=== PATIENT | male | born 1970 | race Asian ===

== ENCOUNTER → 2017-01-13 | Outpatient (CLI) | payer BC ==
--- NOTE | 2017-01-13 08:08 | DIAGNOSTIC IMAGING REPORT ---
ULTRASOUND SOFT TISSUES RIGHT NECK CLINICAL HISTORY: Right neck lump. COMPARISON STUDY: No priors. FINDINGS: Real-time, grayscale, and color flow sonography of the soft tissues of the right neck is performed at the indicated site of interest. The right parotid gland is normal in size and homogeneous in echotexture. A tiny benign-appearing lymph node is incidentally noted in this region and measures 7 mm in short axis. No concerning mass or fluid collection is seen. IMPRESSION: No significant abnormality. Dictated: 01/13/2017 8:06 AM Transcribed: 01/13/2017 8:07 AM Issa Electronically signed by: Kenny Tenorio M.D. 01/13/2017 8:11 AM Dictated Date/Time: 01/13/2017 8:06 AM
== END | disposition home or self-care (01) ==
LOC: C.ULTR 07:41
PROVIDERS: ATTEND Family Medicine
DX: R22.1 Localized swelling, mass and lump, neck (principal)

== ENCOUNTER 2017-07-14 06:17 | Emergency (ER) | payer BC, OTHER ==
[~2017-07-14] VITALS: Ht 160 cm; Wt 61.1 kg
[2017-07-14 06:20] VITALS: TEMP 36.8; Ht 160 cm; Wt 61.1 kg
[2017-07-14 06:36] VITALS: O2SAT 94
--- NOTE | 2017-07-14 06:56 | DIAGNOSTIC IMAGING REPORT ---
CHEST ONE VIEW PORTABLE CLINICAL HISTORY: 46 years-old Male presenting with Evaluate Fever/Sepsis. TECHNIQUE: Portable upright AP view of the chest was obtained. COMPARISON: . FINDINGS: Cardiomediastinal silhouette normal. Lungs and pleural spaces clear. Osseous structures normal. Upper abdomen normal. IMPRESSION: 1. No acute cardiopulmonary disease. Electronically signed by: Sreedhar Bailon M.D. 07/14/2017 6:55 AM Dictated Date/Time: 07/14/2017 6:54 AM
[2017-07-14 07:07] LABS: BASO % 0.8 %; BASO ABS # 0.04 K/uL (0-0.2); EOS % 1.6 %; EOS ABS # 0.08 K/uL (0-0.5); HEMATOCRIT 43.9 % (42-52); HEMOGLOBIN 15.2 g/dL (14.0-18.0); IG# 0.01 K/uL (0.00-0.02); LYMPH % 32.3 %; LYMPH ABS # 1.62 K/uL (1.2-3.4); MEAN CELL VOLUME 87.6 fL (80-100); MEAN CORPUSCULAR HEMOGLOBIN 30.3 pg (25-34); MEAN CORPUSCULAR HGB CONC 34.6 g/dl (32-36); MEAN PLATELET VOLUME 9.9 fL (7.4-10.4); MONO % 10.6 %; MONO ABS # 0.53 K/uL (0.11-0.59); NEUT % 54.5 %; NEUT ABS # 2.74 K/uL (1.4-6.5); PLATELET COUNT 216 K/uL (130-400); RED CELL DISTRIBUTION WIDTH CV 12.2 % (11.5-14.5); WHITE BLOOD COUNT 5.02 K/uL (4.8-10.8)
[2017-07-14 07:20] LABS: PTT PATIENT 25.5 SECONDS (21.0-31.0)
[2017-07-14 07:30] LABS: ALBUMIN 4.3 gm/dl (3.4-5.0); AST/SGOT 19 U/L (15-37); BLOOD UREA NITROGEN 14 mg/dl (7-18); CALCIUM 9.4 mg/dl (8.5-10.1); CARBON DIOXIDE 26 mmol/L (21-32); CREATININE 0.81 mg/dl (0.60-1.40); GLUCOSE 100 mg/dl (70-99); LIPASE 212 U/L (73-393); POTASSIUM 3.4 mmol/L (3.5-5.1); SODIUM 138 mmol/L (136-145)
[2017-07-14 07:38] LABS: ALKALINE PHOSPHATASE 74 U/L (45-117); ALT/SGPT 29 U/L (12-78); CKMB 0.6 ng/ml (0.5-3.6); TOTAL PROTEIN 7.9 gm/dl (6.4-8.2)
[2017-07-14] MEDS ORDERED: MULT-506 PO (08:13)
[2017-07-14] MEDS ORDERED: LACT1CAP6 PO (08:13)
[2017-07-14] MEDS ORDERED: LYSI1TAB11 PO (08:13)
--- NOTE | 2017-07-14 08:14 | EMERGENCY ROOM VISIT NOTE ---
History Report prepared by Whitney: Jorden Vicente Under the Supervision of: Dr. Robert Velazquez D.O. First contact with patient: 06:39 Chief Complaint: TACHYCARDIA Stated Complaint: HIGH HEART RATE,SHORTNESS OF BREATH,SOME BODY PAIN Nursing Triage Summary: c/o high hr for a few days and mild flu like symptoms no meds taken [employer] History of Present Illness The patient is a 46 year old male who presents to the Emergency Room with complaints of a rapid heart rate and shortness of breath that he has been experiencing for the past couple of days. The patient states that when he woke up this morning at 0430 he could feel his heart beating rapidly. He counted his pulse and believes his heart was in the 110s. He notes that there was associated shortness of breath and lightheadedness when the tachycardic rate onset. He denies any recent travels or surgeries. His daughter was dealing with flu-like symptoms recently but he has not had any fevers himself. The patient did make note of one spot on his abdomen that seemed to be discolored when compared to usual. Source of History: patient Onset: Past couple of days. Position: chest (cardiac) Quality: other (Tachycardia) Associated Symptoms: + SOB Review of Systems See HPI for pertinent positives & negatives. A total of 10 systems reviewed and were otherwise negative. Past Medical & Surgical Medical Problems: (1) Internal hemorrhoid Family History No pertinent family histories discussed. Social History Smoking Status: Never Smoker Marital Status: Housing Status: lives with family Occupation Status: employed Current/Historical Medications Scheduled Lactobacillus (Probiotic), 1 CAP PO DAILY Lysine (l-Lysine), 600 MG PO DAILY Multivitamin (Multivitamin), 1 TAB PO DAILY Allergies Coded Allergies: Penicillins (Unverified Allergy, Unknown, 07/14/17) Gluten (Unverified Adverse Reaction, Mild, GI SYMPTOMS, 07/14/17) Physical Exam Vital Signs Date Time Temp Pulse Resp B/P (MAP) Pulse Ox O2 Delivery O2 Flow Rate FiO2 07/14/17 07:36 72 16 119/85 96 Room Air 07/14/17 06:36 94 Room Air 07/14/17 06:36 94 Room Air 07/14/17 06:36 84 20 141/88 94 Room Air 07/14/17 06:31 90 07/14/17 06:20 36.8 91 18 145/105 96 Room Air Physical Exam CONSTITUTIONAL/VITAL SIGNS: Reviewed / noted above. GENERAL: Non-toxic in appearance. INTEGUMENTARY: Warm, dry, and [place]. HEAD: Normocephalic. EYES: without scleral icterus or trauma. ENT/OROPHARYNX: clear and moist. LYMPHADENOPATHY/NECK: Is supple without lymphadenopathy or meningismus. RESPIRATORY: Lungs clear and equal. CARDIOVASCULAR: Regular rate and rhythm. GI/ABDOMEN: Soft and nontender. No organomegaly or pulsatile mass. No rebound or guarding. Normal bowel sounds. EXTREMITIES: Warm and well perfused. BACK: No CVA tenderness. NEUROLOGICAL: Intact without focal deficits. PSYCHIATRIC: normal affect. MUSCULOSKELETAL: Normally developed with good muscle tone. Medical Decision & Procedures ER Provider Diagnostic Interpretation: Radiology results as stated below per my review and radiologist interpretation: CHEST ONE VIEW PORTABLE CLINICAL HISTORY: 46 years-old Male presenting with Evaluate Fever/Sepsis. TECHNIQUE: Portable upright AP view of the chest was obtained. COMPARISON: . FINDINGS: Cardiomediastinal silhouette normal. Lungs and pleural spaces clear. Osseous structures normal. Upper abdomen normal. IMPRESSION: 1. No acute cardiopulmonary disease. Electronically signed by: Sreedhar Bailon M.D. 07/14/2017 6:55 AM Dictated Date/Time: 07/14/2017 6:54 AM Laboratory Results 07/14/17 06:35 Red Blood Count 5.01, Mean Corpuscular Volume 87.6, Mean Corpuscular Hemoglobin 30.3, Mean Corpuscular Hemoglobin Concent 34.6, Mean Platelet Volume 9.9, Neutrophils (%) (Auto) 54.5, Lymphocytes (%) (Auto) 32.3, Monocytes (%) (Auto) 10.6, Eosinophils (%) (Auto) 1.6, Basophils (%) (Auto) 0.8, Neutrophils # (Auto ) 2.74, Lymphocytes # (Auto) 1.62, Monocytes # (Auto) 0.53, Eosinophils # (Auto ) 0.08, Basophils # (Auto) 0.04 07/14/17 06:35 Test 07/14/17 06:35 White Blood Count 5.02 K/uL (4.8-10.8) Red Blood Count 5.01 M/uL (4.7-6.1) Hemoglobin 15.2 g/dL (14.0-18.0) Hematocrit 43.9 % (42-52) Mean Corpuscular Volume 87.6 fL (80-100) Mean Corpuscular Hemoglobin 30.3 pg (25-34) Mean Corpuscular Hemoglobin Concent 34.6 g/dl (32-36) Platelet Count 216 K/uL (130-400) Mean Platelet Volume 9.9 fL (7.4-10.4) Neutrophils (%) (Auto) 54.5 % Lymphocytes (%) (Auto) 32.3 % Monocytes (%) (Auto) 10.6 % Eosinophils (%) (Auto) 1.6 % Basophils (%) (Auto) 0.8 % Neutrophils # (Auto) 2.74 K/uL (1.4-6.5) Lymphocytes # (Auto) 1.62 K/uL (1.2-3.4) Monocytes # (Auto) 0.53 K/uL (0.11-0.59) Eosinophils # (Auto) 0.08 K/uL (0-0.5) Basophils # (Auto) 0.04 K/uL (0-0.2) RDW Standard Deviation 39.0 fL (36.4-46.3) RDW Coefficient of Variation 12.2 % (11.5-14.5) Immature Granulocyte % (Auto) 0.2 % Immature Granulocyte # (Auto) 0.01 K/uL (0.00-0.02) Prothrombin Time 10.3 SECONDS (9.0-12.0) Prothromb Time International Ratio 1.0 (0.9-1.1) Activated Partial Thromboplast Time 25.5 SECONDS (21.0-31.0) Partial Thromboplastin Ratio 1.0 Anion Gap 11.0 mmol/L (3-11) Est Creatinine Clear Calc Drug Dose 92.7 ml/min Estimated GFR () 124.4 Estimated GFR (Non- 107.3 BUN/Creatinine Ratio 17.6 (10-20) Calcium Level 9.4 mg/dl (8.5-10.1) Total Bilirubin 0.4 mg/dl (0.2-1) Direct Bilirubin < 0.1 mg/dl (0-0.2) Aspartate Amino Transf (AST/SGOT) 19 U/L (15-37) Alanine Aminotransferase (ALT/SGPT) 29 U/L (12-78) Alkaline Phosphatase 74 U/L (45-117) Total Creatine Kinase 151 U/L (39-308) Creatine Kinase MB 0.6 ng/ml (0.5-3.6) Creatine Kinase MB Ratio 0.4 (0-3.0) Troponin I < 0.015 ng/ml (0-0.045) Total Protein 7.9 gm/dl (6.4-8.2) Albumin 4.3 gm/dl (3.4-5.0) Lipase 212 U/L (73-393) Thyroid Stimulating Hormone (TSH) 2.890 uIu/ml (0.300-4.500) Laboratory results as stated above per my review. ECG Indication: SOB/dyspnea, tachycardia Rate (beats per minute): 89 Rhythm: normal sinus Findings: other (Normal [place], Normal Intervals, ST ELEVATIONS ) Change: Patient's electrocardiogram interpreted by me. ED Course 0646: Previous medical records were reviewed. The patient was evaluated in room B7. A complete history and physical examination was performed. 0816: On reevaluation, the patient is resting in bed. I discussed the results and findings with the patient. He verbalized agreement of the treatment plan. The patient was discharged home. Medical Decision the differential that was considered includes acute myocardial infarction, acute coronary syndrome, myocarditis, pericarditis, pericardial effusions / tamponade, esophageal perforation, thoracic aortic dissection, pulmonary embolism, pneumonia, pneumothorax, pancreatitis, shingles, acute cholecystitis, perforated abdominal viscus. This is a 46-year-old male who presents to the ED with a chief complaint of a sensation of his heart rate being elevated. He states that his symptoms started 430 this morning. He has had similar symptoms over the past week. He states that his heart rate was about 110. He felt little short of breath. And a little lightheadedness as well. He also reported a few aches and pains on his ankles and under his ribs in the upper abdomen. The patient is in no distress. He is conversing normally. He denies recent illness, cough or fever. His initial blood pressure was 141/88. His physical exam was normal. He is in no distress. His breathing is comfortable and his heart rate was normal. An EKG shows a normal sinus rhythm at a rate of 89 without ectopy or acute injury. CBC is normal, complete metabolic panel was unremarkable, troponin is negative, TSH was normal and a chest x-ray did not show acute disease. The patient was told the results of the test. He does not appear to be having any significant symptoms and does not appear to be in any distress at this time. He is felt to be stable for discharge and outpatient follow-up. Medication Reconcilliation Current Medication List: was personally reviewed by me Blood Pressure Screening Patient's blood pressure: Normal blood pressure Impression Primary Impression: Palpitations Scribe Attestation The scribe's documentation has been prepared under my direction and personally reviewed by me in its entirety. I confirm that the note above accurately reflects all work, treatment, procedures, and medical decision making performed by me. Departure Information Dispostion Home / Self-Care Referrals Daphnie Oliveira M.D. (PCP) Patient Instructions ED Palpitations, My [facility] Additional Instructions Follow-up with your doctor for further care and evaluation in 1-2 days. Return to the emergency department for worsening or new symptoms or any concerns. You have been examined and treated today on an emergency basis only. This is not a substitute for, or an effort to provide, complete comprehensive medical care. It is impossible to recognize and treat all injuries or illnesses in a single emergency department visit. It is therefore important that you follow up closely with your doctor. Call as soon as possible for an appointment.
[2017-07-14 09:54] VITALS: BP 115/75; PULSE 83; O2SAT 96
== END 2017-07-14 09:55 | disposition home or self-care (01) ==
LOC: C.EDB 06:18
DX: R00.2 Palpitations (principal); R06.02 Shortness of breath; R42 Dizziness and giddiness; Z79.899 Other long term (current) drug therapy; Z87.19 Personal history of other diseases of the digestive system; Z88.0 Allergy status to penicillin

== ENCOUNTER 2020-12-22 09:33 | Observation (INO) ==
--- NOTE | 2020-12-19 12:48 | Anesthesiology Consultation ---
Date of Service December 19, 2020 Assessment & Plan (1) Encounter for pre-operative examination: - COVID screening: Per assessment on 12/19: Travel screen negative, no known COVID-19 positive contacts or current COVID-19 related symptoms. Patient vaccinated. Surgeon arranging preop COVID testing. Awaiting results. - Hx bradycardia: Most recent available EKG from 11/2018 noting NSR at 79bpm. S/P unremarkable holter, echo, stress test . Will update AM DOS. Chart Review Chart Review: Acceptable Risk for Surgery (pending preop EKG AM DOS) and Patient NOT seen in Pre Admission Testing History Surgery Operation Date: 12/22/20 09:50 Proposed Procedures p Septoplasty - Brandi You MD s Somnoplasty of Turbinates and Tongue, - Brandi You MD s Tonsillectomy, Uvulopalataoplasty - Brandi You MD Height/Weight Height: 5 ft 2 in Weight: 62.142 kg Allergies Allergy/AdvReac Type Severity Reaction Status Date / Time pollen extracts Allergy Mild Sneezing, Verified 12/19/20 12:39 watery eyes Penicillins Allergy Unknown Unknown Verified 12/19/20 10:13 gluten AdvReac Mild GI symptoms Verified 12/19/20 12:39 Medications Home Medications Medication Instructions Recorded Confirmed Last Taken multivitamin (Daily Multi-Vitamin) 1 tab PO Q OTHER DAY 02/12/19 12/19/20 Unknown fluticasone propionate 50 2 sprays INTNAS DAILY PRN 12/19/20 12/19/20 Unknown mcg/actuation nasal spray,suspension (Flonase Allergy Relief) lysine 500 mg tablet (L-Lysine) 500 mg PO 2XWK 12/19/20 12/19/20 Unknown Past Medical History Medical History Acquired deviated nasal septum Bradycardia "Borderline" bradycardia s/p PSH cardiac workup- discharged from cardio (unremarkable holter 2017 and echo/stress test 2018) Celiac disease Per blood testing (follows gluten free diet) Gastro-esophageal reflux History of seasonal allergies Internal hemorrhoid Obstructive sleep apnea CPAP Past Family History Family History Mother Hearing loss Father Hypertension Cancer Heart disease Other Coronary heart disease No family history of adverse response to anesthesia No family history of bleeding disorder Past Surgical History Surgical History History of colonoscopy History of drainage of abscess Right side of neck History of esophagogastroduodenoscopy (EGD) History of tooth extraction Social History Smoking Status: Never smoker Do You Dip or Chew Tobacco: No Hx Alcohol Use: Yes alcohol intake frequency: holidays/special occasions only Hx Substance Use: No substance use type: does not use Lab Results Anesthesia Preop Results Results Anesthesia Widget: WBC 3.64 K/uL (4.8-10.8) L 12/04/20 Hgb 15.4 g/dL (14.0-18.0) 12/04/20 Hct 45.4 % (42-52) 12/04/20 Plt 218 K/uL (130-400) 12/04/20 Na 139 mmol/L (136-145) 12/04/20 K 3.8 mmol/L (3.5-5.1) 12/04/20 Cl 106 mmol/L (98-107) 12/04/20 CO2 32 mmol/L (21-32) 12/04/20 PT 10.1 Seconds (9.0-12.0) 12/04/20 PTT 24.9 Seconds (21.0-31.0) 12/04/20 INR 1.0 (0.9-1.1) 12/04/20 Testing Electrocardiogram Date: 12/29/18 Normal sinus rhythm at 79 bpm. Nonspecific IVCD. Echocardiogram Date: 03/04/19 LVEF 65%. No regional motion abnormalities. No concentric LVH. No significant valvular disease. Stress Test Date: 03/15/19 Type: exercise Negative exercise stress echo/ECG for ischemia at 110% MPHR. Average exercise tolerance for age and gender. 10.1 METS.
--- NOTE | 2020-12-20 12:00 | History & Physical Report ---
Date of Service December 20, 2020 Assessment & Plan (1) Obstructive sleep apnea: Plan: For septoplasty, radiofrequency volume reduction of turbinates and of the tongue base, tonsillectomy and uvulopalatal plasty (2) Acquired deviated nasal septum: History of Present Illness Chief Complaint: Sleep apnea Primary Care Provider: Daphnie Oliveira This 50-year-old gentleman presents with long history of obstructive sleep apnea with RDI of 17 and lowest oxygen saturation of 77%. He tried CPAP but became so congested where he could only wear the CPAP 3 to 4 hours. He also tried oral appliance which initially successfully treated the sleep apnea however his teeth began to move and developed facial swelling. He desires definitive treatment. Allergies Allergy/AdvReac Type Severity Reaction Status Date / Time pollen extracts Allergy Mild Sneezing, Verified 12/19/20 12:39 watery eyes Penicillins Allergy Unknown Unknown Verified 12/19/20 10:13 gluten AdvReac Mild GI symptoms Verified 12/19/20 12:39 Home Medications Medication Instructions Recorded Confirmed Type multivitamin (Daily Multi-Vitamin) 1 tab PO Q OTHER DAY 02/12/19 12/19/20 History fluticasone propionate 50 2 sprays INTNAS DAILY PRN 12/19/20 12/19/20 History mcg/actuation nasal spray,suspension (Flonase Allergy Relief) lysine 500 mg tablet (L-Lysine) 500 mg PO 2XWK 12/19/20 12/19/20 History Past Med/Surg History Medical History Acquired deviated nasal septum Bradycardia "Borderline" bradycardia s/p PSH cardiac workup- discharged from cardio (unremarkable holter 2017 and echo/stress test 2018) Celiac disease Per blood testing (follows gluten free diet) Gastro-esophageal reflux History of seasonal allergies Internal hemorrhoid Obstructive sleep apnea CPAP Surgical History History of colonoscopy History of drainage of abscess Right side of neck History of esophagogastroduodenoscopy (EGD) History of tooth extraction Family History Mother Hearing loss Father Hypertension Cancer Heart disease Other Coronary heart disease No family history of adverse response to anesthesia No family history of bleeding disorder Social History (Updated 12/04/20 @ 09:00 by Glo Marie MA) Smoking Status: Never smoker Second Hand Exposure: No; Hx Alcohol Use: Yes Alcohol Intake Frequency Comment: "Occasional" Hx Substance Use: No Preferred Language: Yakut Communication Ability: Effective Accounting Recruiter Required: No Beliefs That Will Affect Care: None marital status: Current Living Situation: Spouse Current Living Situation Comment: Lives with and 2 kids current occupational status: employed Feels Safe at Home: Yes Assistive Devices: CPAP Physical Exam Constitutional: WD/WN, vitals as above Eyes: PERRL, conjunctivae normal, anicteric sclerae ENMT: external ear and nose normal, oropharynx normal Nose: + turbinate abnormality (Swollen turbinates) and + septum abnormality (Deviated septum) Mouth: + oropharynx abnormality (Tonsils symmetric, 3+, long uvula) and + tongue abnormality (Tongue base collapse on supine Perez) Neck: trachea midline, no thyromegaly Respiratory: normal respiratory effort, lungs clear to auscultation Cardiovascular: RRR, no murmur, no edema PG Care Time/CCT Total # of Minutes Spent Total Time Spent with Patient: Total time spent is greater than 50% in coordination of care (as documented) at patient's floor/unit and/or counseling patient: Coding Level of Care Code None Diagnoses Obstructive sleep apnea G47.33 Acquired deviated nasal septum J34.2
[~2020-12-22 09:33] MED LIST: LR 15ML/HR IV SCH
[2020-12-22] MEDS ORDERED: LIDOCAINE 2%/EPINEPHRINE 1:100,000 20ML ONE (11:23)
[2020-12-22] MEDS ORDERED: GELATIN SPONGE 12-7MM ONE (11:23)
[2020-12-22] MEDS ORDERED: MUPIROCIN 2% OINT 22 GM TUBE ONE (11:23)
[2020-12-22] MEDS ORDERED: LIDOCAINE 4% INH SOLN 4 ML BTL ONE (11:23)
[2020-12-22] MEDS ORDERED: EPINEPHrine INJ 1 MG/ML AMP ONE (11:23)
--- NOTE | 2020-12-22 11:25 | History & Physical Bridge Note ---
Date of Service December 22, 2020 History & Physical Bridge Note I have examined the patient, reviewed the History & Physical and in the interval since the performance of the History & Physical I have noted the following changes of clinical significance: no changes noted
[2020-12-22] MEDS ORDERED: ONDANSETRON INJ 2 MG/ML 2 ML VIAL IV PRN ×2 (11:29→14:00)
[2020-12-22] MEDS ORDERED: ATROPINE SULFATE 0.1 MG/ML 10ML SYR IV PRN (11:29)
[2020-12-22] MEDS ORDERED: ceFAZolin 2000MG 2,000 MG/15 ML SYR IV SCH (11:35)
[2020-12-22] MEDS ORDERED: ceFAZolin 2,000 MG/15 ML IV PUSH IV ONE (11:38)
[2020-12-22] MEDS ORDERED: PROPOFOL IV EMULSION 10 MG/ML 20 ML VIAL IV ONE (12:04)
[2020-12-22] MEDS ORDERED: ROCURONIUM BROMIDE 10 MG/ML 5 ML VIAL IV ONE (12:04)
[2020-12-22] MEDS ORDERED: DEXAMETHASONE SOD INJ 4 MG/ML VIAL ONE (12:04)
[2020-12-22] MEDS ORDERED: ONDANSETRON INJ 2 MG/ML 2 ML VIAL ONE (12:05)
[2020-12-22] MEDS ORDERED: LIDOCAINE 2% 2 ML VIAL/AMP(20MG/ML) INFIL ONE (12:05)
[2020-12-22] MEDS ORDERED: fentaNYL citrate 100 MCG/2 ML VIAL ONE ×3 (12:49→13:41)
[2020-12-22] MEDS ORDERED: MIDAZOLAM HCL 1 MG/ML 2ML VIAL ONE (13:08)
[2020-12-22] MEDS: fentaNYL citrate 100 MCG/2 ML VIAL IV PRN ×4 (13:58→14:13)
[2020-12-22] MEDS ORDERED: MoRPHine SULFATE 4 MG/ML 1 ML CARP\\VIAL IV PRN (14:00)
[2020-12-22] MEDS ORDERED: LORazepam 1 MG/2 ML VIAL IV PRN (14:00)
[2020-12-22] MEDS ORDERED: MoRPHine SULFATE 2 MG/ML CARP IV PRN (14:00)
[2020-12-22] MEDS ORDERED: OXYMETAZOLINE 0.05% 30 ML BTL PRN (14:00)
[2020-12-22] MEDS ORDERED: ceFAZolin 1000MG 1,000 MG/7.5 ML SYR IV ONE (14:04)
--- NOTE | 2020-12-22 14:09 | Operative Report ---
PG Post Operative Report Pre & Post Diagnosis Operation Date: 12/22/20 11:10 Pre-Op Diagnosis: Obstructive Sleep Apnea; Acquired Deviated Nasal Septum Post-Op Diagnosis: Obstructive Sleep Apnea; Acquired Deviated Nasal Septum I identified the patient and participated in the time-out.: Yes Procedure Operation Date: 12/22/20 11:10 Actual Procedures p Septoplasty(Not Applicable) - Brandi You MD s Somnoplasty of Turbinates and Tongue,(Not Applicable) - Brandi You MD s Tonsillectomy, Uvulopalataoplasty(Bilateral) - Brandi You MD Surgeon Brandi You MD Corset Fitter None Estimated Blood Loss 40 Findings Consistent with Post-Op Diagnosis Long uvula, deviated septum Specimens Tonsils Anesthesia Type General Complications None Description of Procedure He was brought to the operating room, properly identified, prepped and draped in the usual sterile manner after general endotracheal anesthesia. Radiofrequency volume reduction of the tongue base was performed creating 7 double-pronged lesions in the base of the tongue with the setting at 85 C in the rapid lesion mode and 600 J. Radiofrequency volume reduction of the turbinates was performed creating 5 lesions in each inferior turbinate with the setting at 300 J and 75 C on the somnus machine. The nose was decongested using topical cottonoids with a solution of 4 cc of 4% Xylocaine mixed with 1 cc of epinephrine. Injection of 2% Xylocaine with 1-1000 strength epinephrine was also used. Left hemitransfixion incision was made and mucoperichondrial was elevated off the left side the septum. Septal cartilage inferiorly from the vomer maxillary crest from a spur projecting to the left. Posteriorly cartilage was from the perpendicular plate of the ethmoid and then elevating bilateral posterior tunnels to isolate the spur projecting to the left posteriorly. Deviated portion of the perpendicular plate of the ethmoid was removed using the [place] rongeurs and small pieces. Small piece of cartilage was removed from inferiorly to allow the septum to return to the midline. A vomer crest spur to the left was also removed using the [place]-Diaz rongeurs. The septum was closed using continuous mattress suture of 4-0 plain gut. There was minimal bleeding so no packing was needed. Attention was turned to the tonsils. The mouthgag was placed. Peritonsillar area were injected 2% Xylocaine with 1-1000 strength epinephrine after retracting the soft palate with the red Mercado catheter. At this point tonsillectomy was performed using the Coblation device. Hemostasis was controlled using the Coblation device. Uvular resection was performed using #12 blade resecting the anterior surface and mucosa of the uvula preserving the posterior half of the uvula along with the posterior mucosa. A V-shaped cut was placed in the palatoglossal fold and a flap was cut into the palatopharyngeus fold. The flap was rotated laterally into the V cut. All the mucosal edges were approximated using running 2-0 chromic sutures. The pharynx was irrigated clean with saline. He tolerated procedure well was taken recovery area in satisfactory condition. I attest to the content of the Intraoperative Record and any orders documented therein. Any exceptions are noted below.
--- NOTE | 2020-12-22 14:21 | Anesthesiology Progress Note ---
Date of Service December 22, 2020 Anesthesia Post Procedure Vital Signs Vital Signs: Temp Pulse Pulse Resp BP BP Pulse Ox 12/22/20 14:20 86 20 144/97 H 99 12/22/20 14:10 91 H 20 146/96 H 100 12/22/20 14:00 91 H 20 144/82 H 100 12/22/20 13:50 98 H 20 160/109 H 100 12/22/20 13:44 36.1 C L 109 H 12 145/89 H 97 12/22/20 10:03 37.3 C 92 H 20 130/78 95 Pain Intensity Throat: Pain Intensity: 4 Transfer of Care Handoff Completed per policy Notes Mental Status: alert / awake / arousable Patient Amnestic to Procedure: Yes Nausea / Vomiting: adequately controlled Pain: adequately controlled Airway Patency, RR, SpO2: stable & adequate BP & HR: stable & adequate Hydration State: stable & adequate Anesthetic Complications: no major complications apparent
--- NOTE | 2020-12-22 16:28 | Electrocardiogram Report ---
Test Reason : Blood Pressure : / mmHG Vent. Rate : 068 BPM Atrial Rate : 068 BPM P-R Int : 172 ms QRS Dur : 116 ms QT Int : 408 ms P-R-T Axes : 072 -21 041 degrees QTc Int : 433 ms Normal sinus rhythm Possible Left atrial enlargement Incomplete right bundle branch block Borderline ECG When compared with ECG of 14-JUL-2017 06:27, No significant change was found Confirmed by Palmer Watson ([id number]) on 12/22/2020 4:27:47 PM Referred By: Brandi You Confirmed By:Palmer Watson
[2020-12-22] MEDS: D5W AND 1/2NSS + 20MEQ KCL 20 MEQ/1,000 ML BAG IV SCH (18:06)
[2020-12-22] MEDS: dexAMETHasone 6 MG in SYRINGE 0 ML IV SCH (18:06)
[2020-12-23] MEDS: dexAMETHasone 6 MG in SYRINGE 0 ML IV SCH ×2 (00:56→06:26)
[2020-12-23] MEDS: D5W AND 1/2NSS + 20MEQ KCL 20 MEQ/1,000 ML BAG IV SCH (03:06)
--- NOTE | 2020-12-23 08:23 | Discharge Summary ---
Date of Service December 23, 2020 Admission HPI Per Admitting Provider This 50-year-old gentleman presents with long history of obstructive sleep apnea with RDI of 17 and lowest oxygen saturation of 77%. He tried CPAP but became so congested where he could only wear the CPAP 3 to 4 hours. He also tried oral appliance which initially successfully treated the sleep apnea however his teeth began to move and developed facial swelling. He desires definitive treatment. Admission Exam (Per Admitting) Constitutional WD/WN, vitals as above Eyes PERRL, conjunctivae normal, anicteric sclerae ENMT external ear and nose normal, oropharynx normal Nose: + turbinate abnormality (Swollen turbinates) and + septum abnormality (Deviated septum) Mouth: + oropharynx abnormality (Tonsils symmetric, 3+, long uvula) and + tongue abnormality (Tongue base collapse on supine Perez) Neck trachea midline, no thyromegaly Respiratory normal respiratory effort, lungs clear to auscultation Cardiovascular RRR, no murmur, no edema Discharge Data Procedures Performed Operation Date: 12/22/20 11:10 Actual Procedures p Septoplasty(Not Applicable) - Brandi You MD s Somnoplasty of Turbinates and Tongue,(Not Applicable) - Brandi You MD s Tonsillectomy, Uvulopalataoplasty(Bilateral) - Brandi You MD Hospital Course (1) Acquired deviated nasal septum: s/p septoplasty, use saline, afrin as needed (2) Obstructive sleep apnea: s/p tonsil/UPPP, use saline gargle Coding Level of Care Code None Diagnoses Acquired deviated nasal septum J34.2 Obstructive sleep apnea G47.33
[2020-12-23 11:24] VITALS: PULSE 76; TEMP 97.9; O2SAT 97
[2020-12-23 11:30] VITALS: BP 111/66
== END 2020-12-23 14:19 | disposition home or self-care (01) ==
LOC: 3W 09:33 → ASU 09:33